=== PATIENT | female | born 1960 | race Caucasian/White ===

== ENCOUNTER 2017-07-19 10:24 | Outpatient (CLI) | payer BC | END 2017-07-19 18:54 | disposition home or self-care (01) | LOC: SMA 10:24 | PROVIDERS: ATTEND Specialist | DX: Z12.31 Encounter for screening mammogram for malignant neoplasm of breast (principal) | CPT/HCPCS: 77067 ==

== ENCOUNTER 2017-08-15 13:49 | Outpatient (CLI) | payer BC | END 2017-08-15 20:00 | disposition home or self-care (01) | LOC: SUS 13:49 | PROVIDERS: ATTEND Specialist | DX: R92.2 Inconclusive mammogram (principal) | CPT/HCPCS: 76642 ==

== ENCOUNTER 2019-04-25 16:00 | Outpatient (CLI) | payer BC | END 2019-04-25 18:22 | disposition home or self-care (01) | LOC: SMA 16:00 | PROVIDERS: ATTEND Specialist | DX: Z12.31 Encounter for screening mammogram for malignant neoplasm of breast (principal) | CPT/HCPCS: 77067 ==

== ENCOUNTER 2021-03-10 11:10 | Outpatient (CLI) | payer BC | END 2021-03-10 19:42 | disposition home or self-care (01) | LOC: SMA 11:10 | DX: Z12.31 Encounter for screening mammogram for malignant neoplasm of breast (principal) | CPT/HCPCS: 77067 ==